=== PATIENT | female | born 1940 | race Caucasian/White ===

== ENCOUNTER 2018-02-04 19:42 | Emergency (ER) | payer MEDICARE, BC ==
[~2018-02-04] VITALS: Ht 167.6 cm; Wt 90.3 kg
[2018-02-04 19:48] VITALS: BP 190/93
[2018-02-04] MEDS ORDERED: proparacaine 0.5% ophthalmic drops 15ml EACHEYE ONE ×2 (20:55)
[2018-02-04] MEDS ORDERED: benoxinate/fluorescein ophth drops 5ml bottle LEFTEYE ONE (20:55)
[2018-02-04] MEDS ORDERED: PAT0.1OS OP (21:43)
== END 2018-02-04 22:14 | disposition home or self-care (01) ==
LOC: ER 19:42
DX: H57.8 Other specified disorders of eye and adnexa (principal); Z79.899 Other long term (current) drug therapy
CPT/HCPCS: 99283; J7030

== ENCOUNTER 2018-07-04 21:27 | Emergency (ER) | payer MEDICARE, BC ==
[~2018-07-04] VITALS: Ht 167.6 cm; Wt 88.6 kg
[~2018-07-04 21:27] MED LIST: PAT0.1OS OP
[2018-07-04 22:26] VITALS: BP 146/82
== END 2018-07-04 22:27 | disposition home or self-care (01) ==
LOC: ER 21:27
DX: S93.401A Sprain of unspecified ligament of right ankle, initial encounter (principal); Z98.890 Other specified postprocedural states; Z79.899 Other long term (current) drug therapy; X58.XXXA Exposure to other specified factors, initial encounter; Y93.89 Activity, other specified; Y92.89 Other specified places as the place of occurrence of the external cause; Y99.8 Other external cause status
CPT/HCPCS: 29515; 73630; 99284; L4360

== ENCOUNTER 2022-11-04 09:55 | Day surgery (SDC) | payer MEDICARE, BC ==
[2022-10-30 16:38] LABS: CLARITY,URINE SLIGHTLY CLOUDY (Clear); COLOR,URINE YELLOW (Yellow); GLUCOSE, URINE NEGATIVE (Neg); KETONES,URINE NEGATIVE (Neg); LEUKOCYTE ESTERASE ,URINE TRACE (Neg); NITRITES, URINE NEGATIVE (Neg); OCCULT BLOOD,URINE NEGATIVE (Neg); PROTEIN,URINE NEGATIVE (Neg)
[2022-10-30 16:40] LABS: UA COLLECTION TYPE CLN CATCH MIDSTREAM
[2022-10-30 16:44] LABS: BASOPHILS # (AUTO) 0.1 X10'3 (0-0.2); BASOPHILS % (AUTO) 1.2 % (0-1); EOSINOPHILS # (AUTO) 0.2 X10'3 (0-0.9); EOSINOPHILS % (AUTO) 3.5 % (0-6); LYMPHOCYTES # (AUTO) 1.8 X10'3 (1.1-4.8); LYMPHOCYTES % (AUTO) 31.4 % (21-51); MEAN CORPUSCULAR HEMOGLOBIN 30.6 PG (27.0-31.0); MEAN CORPUSCULAR HGB CONC 33.1 g/dL (33.0-36.5); MEAN CORPUSCULAR VOLUME 92.5 FL (78-98); MONOCYTES # (AUTO) 0.6 X10'3 (0-0.9); MONOCYTES % (AUTO) 9.5 % (2-12); NEUTROPHILS # (AUTO) 3.2 X10'3 (1.8-7.7); NEUTROPHILS % (AUTO) 54.4 % (42-75); PRE OP HEMATOCRIT 40.2 % (35.0-45.0); PRE OP HEMOGLOBIN 13.3 g/dL (12.0-16.0); PRE OP PLATELET COUNT 258 X10'3 (140-440); RED BLOOD COUNT 4.35 X10'6 (4.20-5.60); RED CELL DISTRIBUTION WIDTH 13.4 % (11.5-14.5)
[2022-10-30 16:51] LABS: BACTERIA,URINE FEW /HPF (Neg); MUCUS STRANDS NONE SEEN /LPF (Neg); RBC,URINE 0-2 /HPF (0-2); SQUAMOUS EPITHELIAL CELL,UR FEW /LPF (FEW); WBC,URINE 0-4 /HPF (0-4)
[2022-10-30 17:03] LABS: ALBUMIN 3.9 G/DL (3.4-5.0); ALBUMIN/GLOBULIN RATIO 1.1 (1.1-1.5); ALKALINE PHOSPHATASE 113 IU/L (46-116); BLOOD UREA NITROGEN 17 MG/DL (7-18); BUN/CREATININE RATIO 24.6 (6.6-38.0); CALCIUM 9.3 MG/DL (8.5-10.1); CHLORIDE 101 MMOL/L (99-107); CREATININE 0.69 MG/DL (0.40-0.90); PRE OP ALT 27 U/L (30-65); PRE OP ANION GAP 7 (8-16); PRE OP AST 25 U/L (10-37); PRE OP GLUCOSE 138 MG/DL (70-104); PRE OP SODIUM 141 MMOL/L (135-145); TOTAL CARBON DIOXIDE 33.2 MMOL/L (24-32); TOTAL PROTEIN 7.3 G/DL (6.4-8.2); eGFR 82 ML/MIN
[~2022-11-04] VITALS: Ht 170.2 cm; Wt 85.4 kg
[2022-11-04] VITALS (16 sets, daily range): BP systolic 110–151; BP diastolic 53–71
[~2022-11-04 09:55] MED LIST changes: +AMIT-1 PO; +APPLE CIDER VINEGAR; +ASPI-1053 PO; +ATEN50TA8 PO; +CHLO25TA10 PO; +DOCUMENT DATE & TIME OF BETA-BLOCKER PO ONE; +LISI40TA13 PO; +METF-900 PO; -PAT0.1OS OP; +POTA10CA45 PO; +TART CHERRY; +TUMERIC; +VIT D3 PO; +VIT1CAPS46 PO; +[UNRECOGNIZED DRUG - OTHER]; +ceFAZolin inj. 2,000 MG in dextrose 5%-water 100 ML IV ONE; +famotidine 20mg tablet PO ONE; +ringers solution, lacted 1,000 ML IV SCH
--- NOTE | 2022-11-04 10:05 | NUR ---
PATIENT PREPARED FOR SURGERY, IV STARTED IN LEFT HAND, LABS DRAWN. PTS POTASSIUM WAS LOW PRE-OPERATIVELY. REPEAT POTASSIUM ORDERED BY PHYSICIAN. PTS MED RECON COMPLETED. PT LAST TOOK ASPIRIN 10/31/2022. AT BEDSIDE, PT INSTRUCTED ON USE OF INCENTIVE SPIROMETRY. BILATERAL GROINS SHAVED BY [employer]. PT STATES SHE WANTS TO BE ABLE TO RIDE HER HORSES SO SHE WANT TO GET HER HERNIAS FIXED. DR BHAKTA AT BEDSIDE AND EXAMINED PATIENT. DR STEWART ALSO AT BEDSIDE AND PERFORMED ANESTHESIA INTERVIEW. PTS AT BEDSIDE, QUESTIONS ASKED AND ANSWERED.
[2022-11-04] MEDS ORDERED: morphine 2 MG/ML inj. syringe IV PRN (11:20)
[2022-11-04] MEDS ORDERED: hydrALAZINE 20mg/ml inj. IV PRN (11:20)
[2022-11-04] MEDS ORDERED: proCHLORperazine 10 MG/2 ml inj IV PRN (11:20)
[2022-11-04] MEDS ORDERED: morphine 4 MG/ML inj SYRINge IV PRN (11:20)
[2022-11-04] MEDS ORDERED: labetalol 20mg/4ml (5mg/ml) syringe IV PRN (11:20)
[2022-11-04] MEDS ORDERED: ondansetron/PF 4mg/2ml inj IV PRN (11:20)
[2022-11-04] MEDS ORDERED: acetaminophen 1,000mg/100ml IV 100 ML IV PRN (11:20)
[2022-11-04] MEDS ORDERED: meperidine/PF 25mg/ml syringe IV PRN ×3 (11:20)
[2022-11-04] MEDS ORDERED: ringers solution, lacted 1,000 ML IV SCH (11:20)
[2022-11-04] MEDS ORDERED: midazolam 1 mg/ML 2ml injection ONE (11:38)
[2022-11-04] MEDS ORDERED: fentaNYL /PF 50mcg/ml 5ml ampule ONE (11:38)
[2022-11-04] MEDS ORDERED: BUPIVAcaine 0.5% inj/PF 60 ML ONE (11:49)
[2022-11-04] MEDS ORDERED: neostigmine methylsulfate 1 MG/ML 10ml vial ONE ×2 (11:52→13:31)
[2022-11-04] MEDS ORDERED: sevoflurane 250ml liquid IH ONE (11:52)
--- NOTE | 2022-11-04 12:08 | NUR ---
PT TO SURGERY, K RESULTED AT 3.7
[2022-11-04] MEDS ORDERED: BUPIVAcaine 0.5% inj/PF 30 ml vial IJ ONE (12:34)
[2022-11-04] MEDS ORDERED: dexamethasone sod phosphate 4mg/ml inj. ONE (13:21)
[2022-11-04] MEDS ORDERED: ondansetron/PF 4mg/2ml inj ONE (13:21)
[2022-11-04] MEDS ORDERED: hydrALAZINE 20mg/ml inj. IV ONE (13:21)
[2022-11-04] MEDS ORDERED: rocuronium 10mg/ml inj IV ONE (13:21)
[2022-11-04] MEDS ORDERED: LIDOcaine 2% (20mg/ml) 5ml vial ONE (13:21)
[2022-11-04] MEDS ORDERED: propofol inj 20 ML IV ONE (13:21)
[2022-11-04] MEDS ORDERED: glycopyrrolate 0.2mg/ml inj ONE (13:31)
[2022-11-04] MEDS ORDERED: sugammadex 200mg/2ml injection IV ONE (13:35)
[2022-11-04] MEDS ORDERED: morphine 4 MG/ML inj SYRINge ONE (13:37)
--- NOTE | 2022-11-04 13:40 | NUR ---
Received from OR via [facility], accompanied by Anesthesiologist DR STEWART and report given by Anesthesiolgist. PT PRESENTS WITH PIV 20G LEFT HAND, ABD DRESSING RANI HOWARD. VSS. Addendum: 11/04/22 at 1400 by Amy Egan RN, RN Amended: Links added.
[2022-11-04] MEDS ORDERED: HYDROcodone/acetaminophen 10/325mg tab PO ONE (15:05)
--- NOTE | 2022-11-04 16:20 | NUR ---
I HAVE REVIEWED D/C INSTRUCTIONS WITH PATIENT and they have verbalized understanding patient d/c home with all belongings and gave transport home. PT WENT HOME WITH ALL BELONGINGS, PURSE, HORSE SATCHEL. PT'S REPORTS THAT HE PICKED P PAIN MEDS FOR PT. Addendum: 11/04/22 at 1640 by Amy Egan RN, RN Amended: Links added.
== END 2022-11-04 16:20 | disposition home or self-care (01) ==
LOC: PAS 09:55
PROVIDERS: ATTEND Surgery
DX: K40.90 Unilateral inguinal hernia, without obstruction or gangrene, not specified as recurrent (principal); K41.90 Unilateral femoral hernia, without obstruction or gangrene, not specified as recurrent; I10 Essential (primary) hypertension; E11.9 Type 2 diabetes mellitus without complications; M19.90 Unspecified osteoarthritis, unspecified site; K21.9 Gastro-esophageal reflux disease without esophagitis; M35.3 Polymyalgia rheumatica; Z90.710 Acquired absence of both cervix and uterus; Z90.49 Acquired absence of other specified parts of digestive tract; Z96.653 Presence of artificial knee joint, bilateral; Z85.828 Personal history of other malignant neoplasm of skin; Z79.899 Other long term (current) drug therapy; Z79.82 Long term (current) use of aspirin
CPT/HCPCS: 36415; 49650; 49659; 80053; 81001; 82948; 84132; 85025; 87077; 87088; 87186; C1758; C1781; J0360; J0690; J1100; J2250; J2270; J2405; J2704; J2710; J3010; J3490; J7030; J7060; J7120; S0020; Z7506; Z7508; Z7512; A4215; A4615; A4618

== ENCOUNTER 2023-09-01 12:59 | Emergency (ER) | payer MEDICARE, BC ==
[~2023-09-01] VITALS: Ht 167.6 cm; Wt 78.5 kg
[~2023-09-01 12:59] MED LIST changes: -DOCUMENT DATE & TIME OF BETA-BLOCKER PO ONE; -POTA10CA45 PO; +POTA10CA85 PO; -ceFAZolin inj. 2,000 MG in dextrose 5%-water 100 ML IV ONE; -famotidine 20mg tablet PO ONE; -ringers solution, lacted 1,000 ML IV SCH
[2023-09-01 13:06] VITALS: RESP 16; O2SAT 97
[2023-09-01] MEDS ORDERED: aspirin 81mg tab.chew PO ONE (13:10)
[2023-09-01 13:49] LABS: BASOPHILS % (AUTO) 0.9 % (0-1); EOSINOPHILS # (AUTO) 0.3 X10'3 (0-0.9); EOSINOPHILS % (AUTO) 5.6 % (0-6); HEMATOCRIT 38.4 % (35.0-45.0); LYMPHOCYTES # (AUTO) 0.7 X10'3 (1.1-4.8); LYMPHOCYTES % (AUTO) 16.3 % (21-51); MEAN CORPUSCULAR HEMOGLOBIN 31.2 PG (27.0-31.0); MEAN CORPUSCULAR HGB CONC 33.9 g/dL (33.0-36.5); MEAN CORPUSCULAR VOLUME 91.9 FL (78-98); MEAN PLATELET VOLUME 9.7 FL (7.4-10.4); MONOCYTES # (AUTO) 0.4 X10'3 (0-0.9); MONOCYTES % (AUTO) 9.6 % (2-12); NEUTROPHILS # (AUTO) 3.1 X10'3 (1.8-7.7); NEUTROPHILS % (AUTO) 67.6 % (42-75); PLATELET COUNT 227 X10'3 (140-440); RED BLOOD COUNT 4.17 X10'6 (4.20-5.60); RED CELL DISTRIBUTION WIDTH 12.9 % (11.5-14.5); WHITE BLOOD COUNT 4.6 X10'3 (4.5-11.0)
[2023-09-01 14:17] LABS: ALANINE AMINOTRANSFERASE 23 U/L (12-78); ALBUMIN 3.8 G/DL (3.4-5.0); ALBUMIN/GLOBULIN RATIO 1.2 (1.1-1.5); ALKALINE PHOSPHATASE 102 IU/L (46-116); ANION GAP 8 (8-16); ASPARTATE AMINO TRANSFERASE 21 U/L (10-37); BILIRUBIN,TOTAL 1.4 MG/DL (0.1-1.0); BLOOD UREA NITROGEN 14 MG/DL (7-18); BUN/CREATININE RATIO 17.5 (10.0-20.0); CALCIUM 9.3 MG/DL (8.5-10.1); CHLORIDE 98 MMOL/L (99-107); GLUCOSE 251 MG/DL (70-104); MAGNESIUM 1.4 MG/DL (1.5-2.4); PRO BRAIN NATRIURETIC PEPTIDE 409 PG/ML (0-450); SODIUM 139 MMOL/L (135-145); TOTAL CARBON DIOXIDE 32.6 MMOL/L (24-32); TOTAL PROTEIN 7.1 G/DL (6.4-8.2); eCRCL 53 ML/MIN; eGFR 69 ML/MIN
[2023-09-01 14:22] LABS: POTASSIUM 2.9 MMOL/L (3.5-5.1)
[2023-09-01] MEDS ORDERED: potassium Cl 20 mEq SR tablet PO ONE (15:00)
[2023-09-01] MEDS ORDERED: magnesium 2GM in 50ml NS 50 ML IV ONE (15:00)
[2023-09-01 18:01] LABS: BILIRUBIN,URINE NEGATIVE (Neg); CLARITY,URINE CLOUDY (Clear); COLOR,URINE YELLOW (Yellow); GLUCOSE, URINE NEGATIVE (Neg); KETONES,URINE NEGATIVE (Neg); LEUKOCYTE ESTERASE ,URINE SMALL (Neg); NITRITES, URINE NEGATIVE (Neg); OCCULT BLOOD,URINE TRACE-INTACT (Neg); PH,URINE 5.5 (4.8-8.0); PROTEIN,URINE NEGATIVE (Neg); UROBILINOGEN,URINE 0.2 E.U/dL (0.2-1.0)
[2023-09-01 18:03] LABS: UA COLLECTION TYPE CLN CATCH MIDSTREAM
[2023-09-01 18:08] VITALS: BP 212/96; PULSE 56
[2023-09-01 18:10] LABS: SQUAMOUS EPITHELIAL CELL,UR MANY /LPF (FEW)
[2023-09-01 18:11] LABS: HYALINE CASTS 0-3 /LPF (NEGATIVE); MUCUS STRANDS FEW /LPF (Neg); WBC CLUMPS,URINE MANY /HPF (NEGATIVE); WBC,URINE 50-100 /HPF (0-4)
[2023-09-01 18:14] LABS: BACTERIA,URINE 1+ /HPF (Neg); RBC,URINE 0-2 /HPF (0-2); TRANSITIONAL EPI CELLS,URINE MANY /HPF
[2023-09-01] MEDS ORDERED: cephalexin 250mg capsule PO ONE (18:45)
[2023-09-01] MEDS ORDERED: CEPH-585 PO (18:47)
[2023-09-01 18:55] VITALS: TEMP 97.9
== END 2023-09-01 19:00 | disposition home or self-care (01) ==
LOC: ER 13:00
DX: R42 Dizziness and giddiness (principal); E87.6 Hypokalemia; N39.0 Urinary tract infection, site not specified; Z79.899 Other long term (current) drug therapy
CPT/HCPCS: 36415; 71045; 73030; 80053; 81001; 83735; 83880; 84484; 85025; 93005; 96365; 99285; J3475

== ENCOUNTER 2024-04-05 15:50 | Emergency (ER) | payer MEDICARE, BC ==
[~2024-04-05] VITALS: Ht 167.6 cm; Wt 2.2 kg
[2024-04-05 16:22] VITALS: BP 199/79; PULSE 63; RESP 18; TEMP 97.8; O2SAT 98
[2024-04-05] MEDS ORDERED: PRED10TA23 PO (16:32)
== END 2024-04-05 17:34 | disposition home or self-care (01) ==
LOC: ER 15:52
DX: M79.642 Pain in left hand (principal); M79.641 Pain in right hand; Z79.82 Long term (current) use of aspirin; Z79.84 Long term (current) use of oral hypoglycemic drugs; Z79.899 Other long term (current) drug therapy
CPT/HCPCS: 99283

== ENCOUNTER 2024-06-06 17:30 | Emergency (ER) | payer MEDICARE, BC ==
[~2024-06-06] VITALS: Ht 167.6 cm; Wt 79.0 kg
[~2024-06-06 17:30] MED LIST changes: -POTA10CA85 PO; +POTA10CA95 PO
[2024-06-06 18:50] LABS: ALANINE AMINOTRANSFERASE 40 U/L (12-78); ALBUMIN 3.7 G/DL (3.4-5.0); ALBUMIN/GLOBULIN RATIO 1.1 (1.1-1.5); ALKALINE PHOSPHATASE 115 IU/L (46-116); ANION GAP 10 (8-16); ASPARTATE AMINO TRANSFERASE 19 U/L (10-37); BASOPHILS # (AUTO) 0.1 X10'3 (0-0.2); BASOPHILS % (AUTO) 0.9 % (0-1); BILIRUBIN,TOTAL 1.8 MG/DL (0.1-1.0); BLOOD UREA NITROGEN 15 MG/DL (7-18); BUN/CREATININE RATIO 13.4 (10.0-20.0); CALCIUM 9.3 MG/DL (8.5-10.1); CHLORIDE 97 MMOL/L (99-107); CREATININE 1.12 MG/DL (0.40-0.90); EOSINOPHILS % (AUTO) 0 % (0-6); HEMATOCRIT 38.8 % (35.0-45.0); LYMPHOCYTES # (AUTO) 0.6 X10'3 (1.1-4.8); LYMPHOCYTES % (AUTO) 8.6 % (21-51); MEAN CORPUSCULAR HEMOGLOBIN 30.5 PG (27.0-31.0); MEAN CORPUSCULAR HGB CONC 33.4 g/dL (33.0-36.5); MEAN CORPUSCULAR VOLUME 91.3 FL (78-98); MEAN PLATELET VOLUME 10.1 FL (7.4-10.4); MONOCYTES # (AUTO) 0.2 X10'3 (0-0.9); MONOCYTES % (AUTO) 2.1 % (2-12); NEUTROPHILS # (AUTO) 6.2 X10'3 (1.8-7.7); NEUTROPHILS % (AUTO) 88.4 % (42-75); PLATELET COUNT 220 X10'3 (140-440); POTASSIUM 3.8 MMOL/L (3.5-5.1); RED BLOOD COUNT 4.25 X10'6 (4.20-5.60); SODIUM 134 MMOL/L (135-145); TOTAL CARBON DIOXIDE 27.1 MMOL/L (24-32); TOTAL PROTEIN 7.1 G/DL (6.4-8.2); eCRCL 37 ML/MIN; eGFR 47 ML/MIN
[2024-06-06] MEDS: normal saline 1000ML IV soln IVB ONE (18:56)
[2024-06-06 19:04] LABS: GLUCOSE 552 MG/DL (70-104)
[2024-06-06] MEDS: insulin regular, human 10 units/0.1 ml syringe IV ONE ×2 (19:53→21:25)
[2024-06-06 20:05] LABS: BILIRUBIN,URINE NEGATIVE (Neg); CLARITY,URINE CLEAR (Clear); COLOR,URINE STRAW (Yellow); GLUCOSE, URINE >=1000 mg/dl (Neg); KETONES,URINE NEGATIVE (Neg); LEUKOCYTE ESTERASE ,URINE NEGATIVE (Neg); NITRITES, URINE NEGATIVE (Neg); OCCULT BLOOD,URINE NEGATIVE (Neg); PROTEIN,URINE NEGATIVE (Neg); UROBILINOGEN,URINE 0.2 E.U/dL (0.2-1.0)
[2024-06-06 20:09] LABS: UA COLLECTION TYPE CLN CATCH MIDSTREAM
[2024-06-06 20:33] LABS: BACTERIA,URINE NONE SEEN /HPF (Neg); RBC,URINE 0-2 /HPF (0-2); SQUAMOUS EPITHELIAL CELL,UR FEW /LPF (FEW); WBC,URINE 0-4 /HPF (0-4)
[2024-06-06 20:34] LABS: YEAST MODERATE /HPF (NEGATIVE)
[2024-06-06] MEDS: lisinopril 10 MG tablet PO ONE (21:01)
[2024-06-06] MEDS: amLODIPine 5mg tablet PO ONE (21:01)
[2024-06-06] MEDS: hydrALAZINE 20mg/ml inj. IV ONE (21:02)
[2024-06-06 23:14] VITALS: BP 143/62; PULSE 67; RESP 14; TEMP 98.7; O2SAT 95
== END 2024-06-06 23:17 | disposition home or self-care (01) ==
LOC: ER 17:30
DX: R73.9 Hyperglycemia, unspecified (principal); R35.0 Frequency of micturition; Z79.899 Other long term (current) drug therapy; Z79.82 Long term (current) use of aspirin; Z79.84 Long term (current) use of oral hypoglycemic drugs; Z98.890 Other specified postprocedural states; Z85.42 Personal history of malignant neoplasm of other parts of uterus
CPT/HCPCS: 36415; 80053; 81001; 82948; 85025; 87088; 96361; 96374; 96375; 96376; 99285; J0360; J1815; J7030; 87077

== ENCOUNTER 2025-05-24 15:13 | Emergency (ER) | payer MEDICARE, BC ==
[~2025-05-24] VITALS: Ht 167.6 cm; Wt 68.6 kg
[~2025-05-24 15:13] MED LIST changes: -LISI40TA13 PO; +LISI40TA20 PO
[2025-05-24 15:16] VITALS: TEMP 98.2
--- NOTE | 2025-05-24 15:33 | Physician Documentation ---
History of Present Illness ~ Chief Complaint: Chest Pain Stated Complaint: CP Time Seen by MD: 16:50 Primary Medical Doctor: DR. ALMODOVAR HPI 84-year-old female that presents to the emergency department for evaluation of what she describes as chest wall pain x2 months. Patient reports that her shoulders also heard bilaterally to the point of not being able to lift them without pain. Patient reports that she has a very fairly active lady but does not recall any time of injury in the last two months. Reports that pain with movement and use of her upper body has become progressive over the last two months. 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 She states that when she reaches out with either arm she notices pain in her shoulders. Does have a primary care that she sees but forgot to mention her symptoms the last time she was seen there a week ago sHe denies any acute or previous traumatic injury to her shoulder Day of Onset: May 24, 2025 Tetanus within 5 Years?: Yes Allergies: Coded Allergies: No Known Allergies (Unverified , 05/24/25) Active Prescriptions See Medication Reconciliation Form. Medication Reconciliation Scheduled Amitriptyline Hcl (Amitriptyline Hcl), 1 TAB PO DAILY, (Reported) Aspirin (Anahi Chewable), 81 MG PO HS, (Reported) Atenolol (Atenolol), 75 MG PO DAILY, (Reported) Chlorthalidone (Chlorthalidone), 1.5 TAB PO DAILY, (Reported) Lisinopril* (Lisinopril*), 1 TAB PO DAILY, (Reported) Metformin Hcl* (Metformin ER*), 1 TAB PO DAILY, (Reported) Potassium Chloride* (Potassium Chloride*), 1 CAP PO DAILY, (Reported) Vit C/E/Zn/Coppr/Lutein/Zeaxan (Preservision Areds 2 Softgel), 1 CAP PO DAILY, (Reported) [Vit D3], 2,000 INTLU PO HS, (Reported) Miscellaneous Medications [Apple Cider Vinegar], (Reported) [Neueva], (Reported) [[place]], (Reported) [Tumeric], (Reported) Past Medical History Past Medical History: No Pertinent History Past Surgical History: cancer surgery, other Alcohol Use: None Drug Use: none Lives with: Spouse Lives In: Home Review of Systems All Other Systems at this time: Reviewed and Negative ROS As stated above in the HPI, otherwise all systems are reviewed and negative. Physical Exam Vital Signs: Temperature: 98.2, Source: Temporal, Heart Rate: 73, Respiratory Rate: 16, BP: 193/89, Pulse Oximetry: 96, Weight: 68.600 Oxygen Flow Rate: 0 Physical Exam General: Alert, no apparent distress. Respiratory: Lungs clear, no respiratory distress. Cardiovascular: Regular rate and rhythm, no murmurs. Extremities: Decreased range of motion bilateral upper extremities. Positive drop-arm test both arms. With any resistance patient reports pain, no evidence of deformity no erythema Neurologic: Oriented x4. Progress Results/Orders Results/Orders Vital Signs 05/24/25 05/24/25 15:16 17:11 Temp 98.2 Pulse 73 Resp 16 B/P (MAP) 193/89 Pulse Ox 96 O2 Flow Rate 0 Laboratory Tests Test 05/24/25 15:52 CBC Comment Erythrocyte Sedimentation Rate 23 Sodium Level 140 Potassium Level 3.6 Chloride Level 103 Carbon Dioxide Level 30.4 Anion Gap 7 L Blood Urea Nitrogen 15 Creatinine 0.60 Estimated GFR/1.73 m2 > 90 BUN/Creatinine Ratio 25.0 H Glucose Level 163 H Calcium Level 9.5 Total Bilirubin 2.3 H Aspartate Amino Transf (AST/SGOT) 13 Alanine Aminotransferase (ALT/SGPT) 20 Alkaline Phosphatase 108 C-Reactive Protein 1.33 H Total Protein 7.7 Albumin 3.9 Globulin 3.8 Albumin/Globulin Ratio 1.0 L Chemistry Comments Medical Decision Making Findings Based on my physical exam, this patient presents with bilateral upper extremity rotator cuff tendonitis. 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 In his reproducible, patient denies any shortness of breath nausea or any other cardiac-related symptoms. Recommended that they use Voltaren gel instead of ibuprofen 2-3 times daily.. I also explained that she will likely require moderate to extensive physical therapy to fully alleviate her symptoms. Did discuss corticosteroids. If physical therapy does not work for her Differential Dx:Considerations: Include: Chest wall contusion, Flail chest, Myocardial contusion, Pneumothorax, Pulmonary contusion, Rib fracture, Renal contusion, Splenic fracture, Tension pneumothorax, Other Departure Disposition: HOME / SELF CARE / HOMELESS Impression: Primary Impression: Rotator cuff arthropathy Additional Impression: Rotator cuff dysfunction Additional Instructions: I recommend that you make an appointment at your primary care in order to obtain a referral to physical therapy for suspected bilateral rotator cuff tendinitis. You may use Voltaren gel on your affected areas as directed in the meantime. Referrals: NO PRIMARY CARE PROVIDER (PCP) Signature Scribe Signature: y Attestation: Scribed for Loki Ordoñez Scourer by Loki Egan NP . 05/24/25 17:27 MEL ALDRIDGE May 24, 2025 15:32 LOKI ORDOÑEZ NP May 24, 2025 17:22
--- NOTE | 2025-05-24 15:39 | ELECTROCARDIOGRAPH REPORT ---
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
--- NOTE | 2025-05-24 16:06 | RADIOLOGY REPORT ---
Chest x-ray CLINICAL INDICATION: Pain x 2 months FINDINGS: Heart size slightly enlarged with a left ventricular configuration. Aorta tortuous. No inf iltrates or effusions. IMPRESSION: 1. No acute cardiopulmonary pathology
--- NOTE | 2025-05-24 16:15 | RADIOLOGY REPORT ---
CLINICAL INDICATION: Pain x2 months TECHNIQUE: 2 radiographic views of the left shoulder were obtained. Comparison: DI SHOULDER, COMPLETE (MIN 2 VWS) on DOS: 09/01/23 FINDINGS/IMPRESSION: There is no evidence of acute fracture or dislocation. 0.8 cm sclerosis overlying the glenoid which m ay represent a bone island or may be within the overlying soft tissues with a blastic lesion not excl uded Moderate degenerative changes of the left glenohumeral joint and left AC joint with nonspecific calci fication adjacent to the left AC joint The alignment is anatomical. The visualized lungs are clear.
[2025-05-24 16:53] LABS: CREATININE 0.60 MG/DL (0.40-0.90); TOTAL CARBON DIOXIDE 30.4 MMOL/L (24-32); eCRCL 68 ML/MIN; eGFR > 90 ML/MIN
[2025-05-24 17:12] LABS: MEAN PLATELET VOLUME 10.0 FL (7.4-10.4); RED CELL DISTRIBUTION WIDTH 13.9 % (11.5-14.5)
[2025-05-24 18:06] VITALS: BP 176/84; PULSE 78; RESP 18; O2SAT 97
--- NOTE | 2025-05-25 08:44 | RADIOLOGY REPORT ---
CLINICAL INDICATION: PAIN TECHNIQUE: DI SHOULDER, COMPLETE (MIN 2 VWS) Comparison: DI SHOULDER, COMPLETE (MIN 2 VWS) on DOS: 05/24/25, DI SHOULDER, COMPLETE (MIN 2 VWS) on DO S: 09/01/23 FINDINGS/IMPRESSION: : There is no evidence of acute fracture or dislocation. Soft tissues are unremarkable. Degenerative changes of the shoulder.
== END 2025-05-24 18:06 | disposition home or self-care (01) ==
LOC: ER 15:14
DX: M12.88 Other specific arthropathies, not elsewhere classified, other specified site (principal); R07.89 Other chest pain; Z79.899 Other long term (current) drug therapy; Z79.84 Long term (current) use of oral hypoglycemic drugs; Z79.82 Long term (current) use of aspirin
CPT/HCPCS: 36415; 71046; 73030; 80053; 85025; 85651; 86140; 93005; 99285

== ENCOUNTER 2025-09-20 16:15 | Emergency (ER) | payer MEDICARE, BC ==
[2025-09-20 16:23] VITALS: O2SAT 98
--- NOTE | 2025-09-20 17:18 | RADIOLOGY REPORT ---
EXAM: CT CT CHEST ABDOMEN PELVIS History: large metal trough fell on R side of pt, pain lat chest wall ribs 5-9 Comparison Study: DI CHEST,TWO VIEWS on DOS: 05/24/25, DI CHEST,SINGLE VIEW on DOS: 01/21/24, DI CHEST,SINGLE VIEW on DOS: 09/01/23 TECHNIQUE: Multidetector CT of the chest, abdomen, and pelvis was performed. Imaging was performed without IV contrast. Axial, coronal, and sagittal multiplanar reformats were obtained from the axial data set by the technologist. Radiation Dose : CTDI vol 10.4 mGy, DLP 709.96 mGy*cm. Findings: CT chest: Evaluation is degraded by respiratory motion. Lungs: There is minimal scattered atelectasis/scarring. Pleura: Unremarkable Heart/Great vessels: No cardiomegaly or pericardial effusion. Mild atherosclerotic calcification of the aorta. Mediastinum: Unremarkable. Soft tissues/Bones: Mildly displaced fracture of the right posterior 10th rib with overlying soft tissue swelling /stranding. CT abdomen/pelvis: Liver: Right hepatic cyst. Spleen: Unremarkable. Pancreas: Unremarkable. Gallbladder: Prior cholecystectomy. Adrenals: Unremarkable. Kidneys: Unremarkable. Pelvic Viscera: Unremarkable. Vasculature: Atherosclerotic aortoiliac calcification. Retroperitoneum: Shotty retroperitoneal nodes. Bowel: Colonic diverticulosis without CT evidence of diverticulitis. No bowel obstruction. The appendix is normal. Musculoskeletal: Chronic compression of L1 with associated Schmorl's node. Grade 1 anterolisthesis of L3 on L4. Soft tissues: Tiny ventral abdominal wall hernia containing Small fluid. Mild subcutaneous stranding overlying the right posterior chest wall. Impression: 1. Mildly displaced fracture of the right posterior 10th rib with overlying soft tissue stranding. 2. Incidental findings as detailed.
[2025-09-20 20:03] VITALS: RESP 18
[2025-09-20] MEDS: HYDROcodone/acetaminophen 5mg/325mg tablet PO ONE (20:03)
[2025-09-20 20:20] VITALS: BP 199/96; PULSE 64
--- NOTE | 2025-09-20 20:22 | Physician Documentation ---
History of Present Illness ~ Chief Complaint: Back Pain Stated Complaint: FALL/RIB PAIN Time Seen by MD: 19:21 Primary Medical Doctor: DR. ALMODOVAR [facility] This is a 84-year-old female who presents with right rear chest wall pain after a ground level mechanical fall in which a metal water trough struck her in the back, patient reported no loss of consciousness or head strike and reported no other injuries. Patient reports pain is worse when deep breathing or coughing. Patient reports no other acute symptoms or concerns. Medication Reconciliation Allergies: Coded Allergies: No Known Allergies (Unverified , 05/24/25) Scheduled Amitriptyline Hcl (Amitriptyline Hcl), 1 TAB PO DAILY, (Reported) Aspirin (Anahi Chewable), 81 MG PO HS, (Reported) Atenolol (Atenolol), 75 MG PO DAILY, (Reported) Chlorthalidone (Chlorthalidone), 1.5 TAB PO DAILY, (Reported) Lisinopril* (Lisinopril*), 1 TAB PO DAILY, (Reported) Metformin Hcl* (Metformin ER*), 1 TAB PO DAILY, (Reported) Potassium Chloride* (Potassium Chloride*), 1 CAP PO DAILY, (Reported) Vit C/E/Zn/Coppr/Lutein/Zeaxan (Preservision Areds 2 Softgel), 1 CAP PO DAILY, (Reported) [Vit D3], 2,000 INTLU PO HS, (Reported) Scheduled PRN Hydrocodone Bit/Acetaminophen 5/325 MG ([place] 5/325 MG), 1 TAB PO Q6H PRN for pain Miscellaneous Medications [Apple Cider Vinegar], (Reported) [Neueva], (Reported) [[place]], (Reported) [Tumeric], (Reported) Past Medical History Past Medical History: No Pertinent History Past Surgical History: cancer surgery, other Alcohol Use: None Drug Use: none Lives with: Spouse Lives In: Home Review of Systems ROS As stated above in the HPI, otherwise all systems are reviewed and negative. Physical Exam Physical Exam Vital Signs: Temperature: 96.3, Source: Temporal, Heart Rate: 71, Respiratory Rate: 18, Pulse Oximetry: 98 Physical Exam VITALS: Reviewed and as above. GENERAL: Alert, nontoxic appearing, no apparent distress. HEENT: PERRLA, EOMI, no C-spine tenderness RESPIRATORY: No increased work of breathing, no respiratory distress, speaking in full clear sentences clear lung sounds in all lang CHEST: Right posterior chest wall tender to palpation, no crepitus, no paradoxical movement, no deformity, no ecchymosis, no erythema CV: Regular rate and rhythm no murmur BACK: No central spinal tenderness GI: Soft Nontender MUSCULOSKELETAL: No deformities, no tenderness to palpation NEURO: GCS 15 Progress Results/Orders Results/Orders Orders - RA MAE Incentive Spirometer Teaching (09/20/25 19:32) Completed Orders - RA MAE Hydrocodone/Apap 5/325mg Tab ([place] 5/32 (09/20/25 19:35) Medications Received in ER Medications (Trade) Dose Ordered Sig/Georgi Route PRN Reason Start Time Stop Time Status Last Admin Dose Admin ([place] 5/325mg tablet) 1 tab ONCE ONCE PO 09/20/25 19:35 09/20/25 19:36 DC 09/20/25 20:03 1 TAB Vital Signs 09/20/25 09/20/25 09/20/25 09/20/25 16:23 20:03 20:20 20:23 Temp 96.3 96.3 Pulse 71 64 Resp 15 18 B/P (MAP) 199/96 (130) Pulse Ox 98 EKG/XRAY/CT/US/VASC/MRI CT : Impression Exam: CT CHEST ABDOMEN PELVIS EXAM: CT CT CHEST ABDOMEN PELVIS History: large metal trough fell on R side of pt, pain lat chest wall ribs 5-9 Comparison Study: DI CHEST,TWO VIEWS on DOS: 05/24/25, DI CHEST,SINGLE VIEW on DOS: 01/21/24, DI CHEST,SINGLE VIEW on DOS: 09/01/23 TECHNIQUE: Multidetector CT of the chest, abdomen, and pelvis was performed. Imaging was performed without IV contrast. Axial, coronal, and sagittal multiplanar reformats were obtained from the axial data set by the technologist. Radiation Dose : CTDI vol 10.4 mGy, DLP 709.96 mGy*cm. Findings: CT chest: Evaluation is degraded by respiratory motion. Lungs: There is minimal scattered atelectasis/scarring. Pleura: Unremarkable Heart/Great vessels: No cardiomegaly or pericardial effusion. Mild atherosclerotic calcification of the aorta. Mediastinum: Unremarkable. Soft tissues/Bones: Mildly displaced fracture of the right posterior 10th rib with overlying soft tissue swelling /stranding. CT abdomen/pelvis: Liver: Right hepatic cyst. Spleen: Unremarkable. Pancreas: Unremarkable. Gallbladder: Prior cholecystectomy. Adrenals: Unremarkable. Kidneys: Unremarkable. Pelvic Viscera: Unremarkable. Vasculature: Atherosclerotic aortoiliac calcification. Retroperitoneum: Shotty retroperitoneal nodes. Bowel: Colonic diverticulosis without CT evidence of diverticulitis. No bowel obstruction. The appendix is normal. Musculoskeletal: Chronic compression of L1 with associated Schmorl's node. Grade 1 anterolisthesis of L3 on L4. Soft tissues: Tiny ventral abdominal wall hernia containing Small fluid. Mild subcutaneous stranding overlying the right posterior chest wall. Impression: 1. Mildly displaced fracture of the right posterior 10th rib with overlying soft tissue stranding. 2. Incidental findings as detailed. Electronically Signed by:ROBERT GARCIA MD Date & Time: 09/20/251714 Dictated by: ROBERT GARCIA MD Dictation date and time: 09/20/251714 I have reviewed and agree with the radiology report. I have reviewed and interpreted the imaging as: No intraperitoneal free air Medical Decision Making Additional information obtaine: N/A Findings This 84-year-old female presented to the emergency department with right posterior chest wall pain after a fall in which she was struck in the back by a metal feeding trough, patient reported no other injuries and no other injuries found on physical exam, patient is otherwise well-appearing. CT of chest abdomen and pelvis demonstrated mildly displaced 10th rib fracture consistent with physical exam. I discussed with the patient the option for hospital admission for pain management and she declined, patient we will be managed for pain with [place] into follow up promptly with primary care provider for further management. Patient provided home care instructions return to care precautions, and follow up instructions which she verbalized understanding of. Patient is noted to be hypertensive however she is quite overdue for prescribed hypertension medications, has been she reports no symptoms to suggest hypertensive emergency she will be discharged to take previously prescribed antihypertensives. I have discussed with the patient the risks of addiction and overdose associated with use of opioids, including the increased risk of addiction to an opioid for an individual who is suffering from both mental and substance abuse disorders. I have discussed with the patient the danger of taking an opioid with a benzodiazepine, alcohol, or another central nervous system depressant. Differential Dx:Considerations: AAA, Aortic dissection, Appendicitis, Bowel obstruction, Cholelithiasis, Cholangitis, Fracture, Hepatitis, Musculoskeletal pain, Pancreatitis, Pyelonephritis, Urinary obstruction, Urolithiasis, Urinary tract infection, Other (Spinal injury, head injury) Departure Time of Disposition: 20:22 Disposition: 01 HOME / SELF CARE / HOMELESS Impression: Primary Impression: Fracture of right tenth rib Condition: Improved Discharge Instructions: Rib Fracture, [id number] Additional Instructions: Please take your medications as prescribed, follow up promptly with your primary care provider for further management and additional pain medication management. Please follow up with your primary care provider in the next few days. Please return to the emergency department for any new or worsening concerning symptoms. You may use [id number] Tylenol as needed for pain as directed by the [id number] packaging. For breakthrough pain you may use the prescribed [place], be aware that the [place] also contains the same active ingredient as Tylenol, so do not take more than the recommended amount of Tylenol as directed on the [id number] packaging. You have been prescribed an opioid medication, there are risks of addiction and overdose associated with the use of opioids. The risk of addiction to an opioid for increases for those suffering both from mental health and substance use disorders. The use of an opioid while taking other central nervous system depressants including but not limited to benzodiazepines or alcohol, or other opioids increases the risk of serious side effects that can include overdose or respiratory depression that can lead to serious injury or . Referrals: NO PRIMARY CARE PROVIDER (PCP) Prescriptions Hydrocodone Bit/Acetaminophen 5/325 MG ([place] 5/325 MG) 5 Mg/325 Mg Tablet 1 TAB PO Q6H PRN for pain, #12 TAB Prov: RA MAE 09/20/25 Education Educated: Patient Educated regarding: diagnosis, treatment, prognosis, need for follow up Signature Scribe Signature: No scribe Attestation: The note accurately reflects work and decisions made by me.REBECA Schwab 09/21/25 02:57 RA MAE Sep 20, 2025 20:22
[2025-09-20 20:23] VITALS: TEMP 96.3
[2025-09-20] MEDS ORDERED: HYDR-3965 PO ×2 (20:31)
== END 2025-09-20 20:42 | disposition home or self-care (01) ==
LOC: ER 16:16
DX: S22.31XA Fracture of one rib, right side, initial encounter for closed fracture (principal); Z79.899 Other long term (current) drug therapy; Z79.84 Long term (current) use of oral hypoglycemic drugs; W01.10XA Fall on same level from slipping, tripping and stumbling with subsequent striking against unspecified object, initial encounter; Y93.89 Activity, other specified; Y92.89 Other specified places as the place of occurrence of the external cause; Y99.8 Other external cause status
CPT/HCPCS: 71250; 74176; 99284